=== PATIENT | female | born 1965 | race Caucasian/White ===

== ENCOUNTER 2016-02-20 11:40 | Outpatient (CLI) | payer MEDICARE, MEDICAID | END 2016-02-20 11:41 | disposition home or self-care (01) | LOC: HPCALD 11:40 | PROVIDERS: ATTEND Family Medicine | DX: E53.8 Deficiency of other specified B group vitamins (principal) | CPT/HCPCS: 36415; 82607 ==

== ENCOUNTER 2016-03-07 14:35 | Outpatient (CLI) | payer MEDICARE, MEDICAID | END 2016-03-07 14:36 | disposition home or self-care (01) | LOC: HPCALD 14:35 | PROVIDERS: ATTEND Family Medicine | DX: N30.00 Acute cystitis without hematuria (principal) | CPT/HCPCS: 87086 ==

== ENCOUNTER 2016-04-29 15:57 | Outpatient (CLI) | payer MEDICARE, MEDICAID ==
[2016-04-29 16:19] LABS: #Eosinphils 0.1 thou/uL (0.0-0.7); #Lymphocytes 2.7 thou/uL (1.20-3.40); #Monocytes 0.4 thou/uL (0.11-0.59); #Neutrophils 2.6 thou/uL (1.40-6.50); %Basophils 0.8 % (0.0-1.0); %Eosinophils 1.3 % (0.0-10.0); %Lymphocytes 46.5 % (21.0-51.0); %Monocytes 6.3 % (0.0-10.0); %Neutrophils 45.1 % (42.0-75.0); Hemoglobin 13.2 g/dL (12.0-16.0); Mean Corpuscular HGB CONC 33.6 g/dL (32.0-36.0); Mean Corpuscular Hemoglobin 28.3 pg (27.0-31.0); Mean Corpuscular Volume 84.3 fl (81.0-99.0); Mean Platelet Volume 5.1 fL (7.4-10.4); Platelet Count 254 thou/uL (130-400); RBC Distribution Width 17.4 % (11.5-14.5); Red Blood Cell (RBC) Count 4.67 mill/uL (4.20-5.40); White Blood Cell (WBC) Count 5.8 thou/uL (4.8-10.8)
[2016-04-29 16:30] LABS: Hemoglobin A1c 8.4 % (4.0-6.0)
== END 2016-04-29 15:58 | disposition home or self-care (01) ==
LOC: HPCALD 15:57
PROVIDERS: ATTEND Family Medicine
DX: E03.9 Hypothyroidism, unspecified (principal); E11.42 Type 2 diabetes mellitus with diabetic polyneuropathy; D62 Acute posthemorrhagic anemia
CPT/HCPCS: 36415; 83036; 84443; 85025

== ENCOUNTER 2016-05-30 10:03 | Outpatient (CLI) | payer MEDICARE, MEDICAID ==
--- NOTE | 2016-06-02 08:22 | ULT ---
ABDOMINAL ULTRASOUND COMPLETE: 05/30/16 HISTORY: Screening for abdominal aortic aneurysm. Followup for prior GI bleeding. Patient is status post cholecystectomy. Common bile duct is 0.9 cm. There is some atherosclerotic ch anges of the aorta but no evidence for significant focal aneurysm. The visualized liver, IVC, aorta, pancreas, and spleen are unremarkable. No renal hydronephrosis. No abscess or abnormal fluid collec tion. IMPRESSION: Status post cholecystectomy with some dilatation of the common bile duct but no significant intrahep atic dilatation. No evidence of aortic aneurysm. Atherosclerosis of the aorta. POS: [facility]
== END 2016-05-30 10:04 | disposition home or self-care (01) ==
LOC: BURULT 10:03
PROVIDERS: ATTEND Family Medicine
DX: Z13.6 Encounter for screening for cardiovascular disorders (principal); I70.0 Atherosclerosis of aorta; K83.8 Other specified diseases of biliary tract; Z90.49 Acquired absence of other specified parts of digestive tract
CPT/HCPCS: 76700

== ENCOUNTER 2016-06-27 12:27 | Emergency (ER) | payer MEDICARE, MEDICAID ==
[2016-06-27 13:18] LABS: #Eosinphils 0.1 thou/uL (0.0-0.7); #Monocytes 0.5 thou/uL (0.11-0.59); #Neutrophils 4.3 thou/uL (1.40-6.50); %Basophils 0.5 % (0.0-1.0); %Eosinophils 1.4 % (0.0-10.0); %Lymphocytes 28.7 % (21.0-51.0); %Monocytes 6.8 % (0.0-10.0); %Neutrophils 62.6 % (42.0-75.0); Hemoglobin 14.2 g/dL (12.0-16.0); Mean Corpuscular HGB CONC 35.7 g/dL (32.0-36.0); Mean Corpuscular Hemoglobin 31.3 pg (27.0-31.0); Mean Corpuscular Volume 87.5 fl (81.0-99.0); Mean Platelet Volume 5.2 fL (7.4-10.4); Platelet Count 258 thou/uL (130-400); RBC Distribution Width 11.9 % (11.5-14.5); Red Blood Cell (RBC) Count 4.53 mill/uL (4.20-5.40); White Blood Cell (WBC) Count 6.9 thou/uL (4.8-10.8)
[2016-06-27 13:35] LABS: ALT (SGPT) 25 U/L (8-55); AST (SGOT) 17 U/L (5-34); Albumin 4.2 g/dL (3.5-5.0); Alkaline Phosphatase 63 U/L (40-150); Anion Gap 13 mmol/L (10-20); BUN (Urea Nitrogen) 16 mg/dL (9.8-20.1); Bilirubin, Total 0.3 mg/dL (0.2-1.2); Calc. Creatinine Clearance 0 mL/min (70-130); Calcium 9.7 mg/dL (7.8-10.44); Carbon Dioxide 27 mmol/L (22-29); Chloride 106 mmol/L (98-107); Estimated GFR-MDRD 62; Globulin 2.9 g/dL (2.4-3.5); Glucose 311 mg/dL (70-105); Potassium 4.1 mmol/L (3.5-5.1); Protein, Total 7.1 g/dL (6.0-8.3); Sodium 142 mmol/L (136-145)
== END 2016-06-27 13:53 | disposition home or self-care (01) ==
LOC: BURERS 12:27
DX: K29.70 Gastritis, unspecified, without bleeding (principal); E11.9 Type 2 diabetes mellitus without complications; E03.9 Hypothyroidism, unspecified; D64.9 Anemia, unspecified; F32.9 Major depressive disorder, single episode, unspecified; Z79.4 Long term (current) use of insulin; Z79.899 Other long term (current) drug therapy
CPT/HCPCS: 80053; 82274; 85025; 86900; 86901; 99283

== ENCOUNTER 2016-07-03 12:12 | Outpatient (CLI) | payer MEDICARE, MEDICAID | END 2016-07-03 12:13 | disposition home or self-care (01) | LOC: BURLAB 12:12 | PROVIDERS: ATTEND Internal Medicine Gastroenterology | DX: K52.9 Noninfective gastroenteritis and colitis, unspecified (principal) | CPT/HCPCS: 36415; 83516 ==

== ENCOUNTER 2016-07-22 16:43 | Outpatient (CLI) | payer MEDICARE, MEDICAID ==
[2016-07-22 17:51] LABS: Free T4 (Free Thyroxine) 0.93 ng/dL (0.70-1.48); Thyroid Stimulating Hormone 0.4636 uIU/mL (0.35-4.94)
== END 2016-07-22 16:44 | disposition home or self-care (01) ==
LOC: HPCALD 16:43
PROVIDERS: ATTEND Family Medicine
DX: E03.9 Hypothyroidism, unspecified (principal)
CPT/HCPCS: 36415; 84439; 84443

== ENCOUNTER 2016-08-27 13:39 | Outpatient (CLI) | payer MEDICARE, MEDICAID | END 2016-08-27 13:40 | disposition home or self-care (01) | LOC: HPCALD 13:39 | PROVIDERS: ATTEND Family Medicine | DX: N30.01 Acute cystitis with hematuria (principal) | CPT/HCPCS: 87086 ==

== ENCOUNTER 2017-05-22 13:25 | Emergency (ER) | payer MEDICARE, MEDICAID ==
[2017-05-22 14:08] LABS: #Basophils 0.1 thou/uL (0.0-0.2); #Eosinphils 0.2 thou/uL (0.0-0.7); #Lymphocytes 2.7 thou/uL (1.20-3.40); #Monocytes 0.6 thou/uL (0.11-0.59); #Neutrophils 4.4 thou/uL (1.40-6.50); %Basophils 0.7 % (0.0-1.0); %Eosinophils 2.4 % (0.0-10.0); %Lymphocytes 33.6 % (21.0-51.0); %Monocytes 7.7 % (0.0-10.0); %Neutrophils 55.7 % (42.0-75.0); Hemoglobin 13.8 g/dL (12.0-16.0); Mean Corpuscular Hemoglobin 28.3 pg (27.0-31.0); Mean Corpuscular Volume 85.8 fl (81.0-99.0); Mean Platelet Volume 5.6 fL (7.4-10.4); Platelet Count 280 thou/uL (130-400); RBC Distribution Width 12.3 % (11.5-14.5); Red Blood Cell (RBC) Count 4.86 mill/uL (4.20-5.40); White Blood Cell (WBC) Count 7.9 thou/uL (4.8-10.8)
[2017-05-22 14:23] LABS: ALT (SGPT) 18 U/L (8-55); AST (SGOT) 17 U/L (5-34); Albumin 4.1 g/dL (3.5-5.0); Alkaline Phosphatase 69 U/L (40-150); Anion Gap 13 mmol/L (10-20); BUN (Urea Nitrogen) 12 mg/dL (9.8-20.1); Bilirubin, Total 0.3 mg/dL (0.2-1.2); Calc. Creatinine Clearance 0 mL/min (70-130); Calcium 9.2 mg/dL (7.8-10.44); Carbon Dioxide 29 mmol/L (22-29); Chloride 105 mmol/L (98-107); Estimated GFR-MDRD 81; Globulin 2.9 g/dL (2.4-3.5); Glucose 214 mg/dL (70-105); Potassium 4.2 mmol/L (3.5-5.1); Sodium 143 mmol/L (136-145)
[2017-05-22 14:25] LABS: CKMB 1.8 ng/mL (0-6.6); Troponin I Less than 0.010 ng/mL (< 0.028)
[2017-05-22] MEDS ORDERED: Ketorolac Tromethamine 30 MG/ML VIAL ONE (14:36)
[2017-05-22] MEDS ORDERED: methylPREDNISolone Sod Succ/PF 125 MG/2 ML VIAL ONE (15:52)
--- NOTE | 2017-05-22 20:13 | RAD ---
LEFT RIBS THREE VIEWS: 05/22/17 No fracture, pneumothorax or pleural effusion was seen. The adjacent lung is clear except for perhaps an area of lingular scarring. IMPRESSION: No significant finding. POS: HOME
--- NOTE | 2017-05-22 20:42 | RAD ---
PORTABLE CHEST 05/22/17 An AP portable film at 1331 shows a normal sized heart and clear lungs. No significant infiltrate or effusion was seen. The visible bony structures appear intact. The trachea is midline. The mediastinum appears normal. There is a suggestion of calcific tendonitis in the right shoulder. IMPRESSION: No acute thoracic findings. POS: HOME
== END 2017-05-22 16:00 | disposition home or self-care (01) ==
LOC: BURERS 13:25
DX: R07.82 Intercostal pain (principal); R14.0 Abdominal distension (gaseous); E11.9 Type 2 diabetes mellitus without complications; E03.9 Hypothyroidism, unspecified; I10 Essential (primary) hypertension; F32.9 Major depressive disorder, single episode, unspecified; Z79.899 Other long term (current) drug therapy
CPT/HCPCS: 71045; 80053; 82553; 84484; 85025; 85379; 93005; 96374; 96375; J1885; J2930

== ENCOUNTER 2017-07-10 14:32 | Outpatient (CLI) | payer MEDICARE, MEDICAID ==
--- NOTE | 2017-07-10 17:06 | RAD ---
RIGHT SHOULDER THREE VIEWS 07/10/17 There is a small calcification overlapping the upper outer part of the humeral head suggesting calcif ic tendonitis. No fracture or dislocation was seen. Mild degenerative changes are seen in the AC join t. The scapula appears normal and the visible adjacent ribs appear normal. IMPRESSION: 1. Probable calcific tendonitis. 2. Mild AC joint arthritis. POS: HOME
== END 2017-07-10 14:33 | disposition home or self-care (01) ==
LOC: BURRAD 14:32
PROVIDERS: ATTEND Family Medicine
DX: M19.011 Primary osteoarthritis, right shoulder (principal)

== ENCOUNTER 2018-08-30 21:45 | Emergency (ER) | payer MEDICARE, OTHER ==
--- NOTE | 2018-08-30 22:21 | RAD ---
EXAM: Left hand: 3 views INDICATIONS: Trauma COMPARISON: None. FINDINGS: There is an obliquely oriented nondisplaced fracture involving mid shaft of fifth metacarpa l. No other abnormality identified. IMPRESSION: Fracture fifth metacarpal
== END 2018-08-30 22:30 | disposition home or self-care (01) ==
LOC: BURERS 21:45
DX: S62.357A Nondisplaced fracture of shaft of fifth metacarpal bone, left hand, initial encounter for closed fracture (principal); E03.9 Hypothyroidism, unspecified; D64.9 Anemia, unspecified; I10 Essential (primary) hypertension; F32.9 Major depressive disorder, single episode, unspecified; Z79.899 Other long term (current) drug therapy; Y04.0XXA Assault by unarmed brawl or fight, initial encounter
CPT/HCPCS: 29125

== ENCOUNTER 2019-08-03 16:01 | Emergency (ER) | payer MEDICARE, OTHER ==
[2019-08-03] MEDS ORDERED: Tetracaine 0.5% OPHTH SOLN/PF 4 ML BOT ONE (16:14)
[2019-08-03] MEDS ORDERED: Fluorescein Opthalmic Strip ONE (16:14)
== END 2019-08-03 16:41 | disposition home or self-care (01) ==
LOC: BURERS 16:01
DX: T15.11XA Foreign body in conjunctival sac, right eye, initial encounter (principal); E03.9 Hypothyroidism, unspecified; D64.9 Anemia, unspecified; I10 Essential (primary) hypertension; F32.9 Major depressive disorder, single episode, unspecified; E11.9 Type 2 diabetes mellitus without complications; Z79.899 Other long term (current) drug therapy; W22.8XXA Striking against or struck by other objects, initial encounter
CPT/HCPCS: 65205

== ENCOUNTER 2024-02-13 09:08 | Emergency (ER) | payer OTHER, MEDICAID | END 2024-02-13 09:36 | disposition home or self-care (01) | LOC: BURERS 09:08 | DX: H92.01 Otalgia, right ear (principal); I10 Essential (primary) hypertension; E11.9 Type 2 diabetes mellitus without complications; E03.9 Hypothyroidism, unspecified; D64.9 Anemia, unspecified; Z79.899 Other long term (current) drug therapy | CPT/HCPCS: 99282 ==